=== PATIENT | male | born 1965 | race Caucasian/White ===

== ENCOUNTER 2016-09-05 15:12 | Inpatient (IN) | payer MEDICARE, OTHER ==
--- NOTE | ~2016-09-05 | CO ---
Unit #: [id number] #: [id number] Patient: ANJEL PEREZ JR [id number] [address] [place], [place] [address] [id number] I MR#: [id number] NAME: ANJEL PEREZ JR ROOM: 314 Age: 51 Sex: M Admission Date: 09/05/2016 : 1965 Attending Physician: Chiara Basurto M.D. Primary Care Physician: Sue Craig M.D. CONSULTATION REPORT CHIEF COMPLAINT Multiple myeloma stage III, 50% plasma cells in the bone marrow, addicted to the pain medication on methadone 100 mg daily. Refused stem cell transplant. Came with nausea, vomiting and possible withdrawal from methadone. HISTORY OF PRESENT ILLNESS This is a 51-year-old male who presented to this hospital with back pain found to have hypercalcemia. Patient had extensive imaging studies, all normal. His workup for multiple cell positive. His bone marrow biopsy is 50% plasma cell. His beta 2 microglobulin is 13.4, IGG Moore 8.6 was positive. Free kappa lambda ratio was less than 1. He received six cycles of CyBorD regimen. He was evaluated at [facility]. He refused stem cell transplant. The patient had followup bone marrow on 04/26/2016 and it showed minimal disease. He has an . At present, he is taking dexamethasone and Revlimid. The patient has coronary artery disease, patient recently had placement of a stent and he is taking aspirin and Plavix daily. The patient developed nausea, vomiting, abdominal pain, low-grade fever. He could not take his methadone. He developed symptoms also with the methadone withdrawal. He came to the hospital and had CT of the abdomen and pelvis that was normal. Chest x-ray normal. His CBC shows WBC of 2.3, hemoglobin 9.4, MCV 96, and platelets 60. Creatinine is 1.4. LFTs are normal. At present, he is feeling better. He is asking for methadone. REVIEW OF SYSTEMS CONSTITUTIONAL: No fever, no chills, no sweats, no weight loss. EYES: No visual symptoms. EARS, NOSE AND THROAT: There is no runny nose or sore throat or difficulty hearing. CARDIOVASCULAR: No chest pain. No shortness of breath. No palpitations. No orthopnea. No PND. Unit #: [id number] #: [id number] Patient: ANJEL PEREZ JR RESPIRATORY: No cough. No wheezing. No hemoptysis. GASTROINTESTINAL: As mentioned above, nausea, vomiting. Abdominal pain. GENITOURINARY: No urinary frequency, hesitancy or urgency. No blood in the urine. MUSCULOSKELETAL: No muscle or joint pain. NEUROLOGIC: No headache. No numbness or tingling. No weakness. No seizure. PSYCHIATRIC: No anxiety, depression or mood disturbance. ENDOCRINE: No excessive urination or thirst. DERMATOLOGIC: No rash or change in the skin. ALLERGIC/IMMUNOLOGIC: No symptoms. HEMATOLOGIC/LYMPHATIC: Denies any symptoms. PAST MEDICAL HISTORY 1. Multiple myeloma stage III. He received CyBorD regimen, 6 cycles, excellent response. Refuses stem cell transplant. Minimum disease. Now on Revlimid and dexamethasone. 2. Coronary artery disease. He had successful stent. He is taking aspirin, Plavix. 3. Hypertension. 4. Back pain. PAST SURGICAL HISTORY Hand surgery. ALLERGIES None. SOCIAL HISTORY He has been smoking one pack per day for 20 years. Denied drug abuse. However, he is on methadone because of the chronic pain. He was addicted to the pain medication. FAMILY HISTORY Father had lung cancer. Mother also had lung cancer. CURRENT MEDICATIONS Include: 1. Lipitor. 2. Zofran. 3. Methadone. 4. Zosyn. 5. Protonix. PHYSICAL EXAMINATION GENERAL: Patient is comfortable. ECOG is 0. The patient is pleasant. VITAL SIGNS: Afebrile, pulse 68, respiratory rate 18, O2 saturation 99% on 2 liters, blood pressure 104/78. HEENT: Moist mucosa. Pupils equally reactive to light. Extraocular muscles intact. Sclerae anicteric. No obvious bleeding from nasal mucosa or oral mucosa. Scalp normal. Hearing normal. NECK: No JVD. No lymphadenopathy. LYMPHATIC/HEMATOLOGIC: There is no palpable adenopathy in the neck, axilla or inguinal area. CARDIOVASCULAR: S1, S2. Regular rate and rhythm. No S3 or S4. RESPIRATORY: Chest symmetrical, normal. Clear to auscultation bilaterally. No wheezes, no rales, no rhonchi. No dullness to percussion. ABDOMEN/GASTROINTESTINAL: Abdomen is soft, nontender, nondistended. No Unit #: [id number] #: [id number] Patient: ANJEL PEREZ JR hepatosplenomegaly. EXTREMITIES: There is no clubbing, no cyanosis, no edema. No varicose veins. NEUROLOGICAL: Patient is alert, awake and oriented x3. Cranial nerves II-XII are intact. Sensory grossly intact. Motor is 4/5 in all four extremities. Gait is normal. Station is normal. Language is normal. Memory is normal. DTRs +2 in all four extremities. MUSCULOSKELETAL: No joint swelling. No bony tenderness. No muscle tenderness. SKIN: No petechiae, no rash, no ecchymosis. PSYCHIATRIC: No anxiety. No delusions or hallucinations. There is no agitation. Eye contact is normal. Affect is appropriate. There is no flight of ideas. DIAGNOSTIC STUDIES LABORATORY: As mentioned above. IMAGING: As mentioned above. ASSESSMENT AND PLAN This is a 51-year-old male with following active issues: 1. Multiple myeloma. Patient has stage III disease. 2. He has hypercalcemia. His total protein was 12. The beta 2 microglobulin 13. His free Moore/lambda ratio less than 1. He received 6 cycles of CyBorD regimen. He refused autologous stem cell transplant. He has minimal disease in the bone marrow. has 325 mg p.o. daily, 3 weeks on, 1 week off, Decadron just 10 mg p.o. aspirin 81 mg. At present will hold his Revlimid and dexamethasone. As an outpatient will restart. 3. the patient has nausea and vomiting. He received Zofran. 4. Methadone. He is probably withdrawing his methadone. I started him on 30 mg p.o. at q.8 hours. 5. Pain. He was addicted to the pain medication, now on methadone as mentioned above. 6. Anemia. Will check iron studies. 7. Thrombocytopenia. We will hold aspirin and Plavix. 8. Leukopenia. This is due to bone marrow suppression secondary to Revlimid. Will start on Granix. Dictated by... Nancy Zepeda/corey TD: 09/06/2016 18:25 JOB #: [id number] Unit #: [id number] #: [id number] Patient: ANJEL PEREZ JR CONSULTATION REPORT Page 1 of 1 X Sue Craig MD X CONSULTATION REPORT
--- NOTE | ~2016-09-05 | CR72 ---
[facility] A Service of [facility] RADIOLOGY TEXT RESULTS PATIENT: ANJEL PEREZ JR LOCATION: [facility] [id number] : [birth year] UNIT #: [id number] AGE: [address]: Joan Singh MD SEX: M ORDER DR: [id number] [facility] [address] [facility]. [place], [place] [address] [id number] E MR#: [id number] Acc #: [id number] NAME: ANJEL PEREZ JR : 1965 SEX: M STUDY DATE/TIME: 09/05/2016 16:47 UNIT: [facility] ROOM: STUDY DESCRIPTION: CR Chest Single View Portable Attending Physician: Mary Healy M.D. Ordering Physician: Mary Healy M.D. Primary Care Physician: Sue Craig M.D. MEDICAL IMAGING REPORT This report is preliminary unless electronic signature is present EXAM Portable chest, 09/05/16 INDICATIONS Fever with diaphoresis and congestion started today. History of multiple myeloma. FINDINGS AP portable chest compared with 10/10/2015. Cardiac mediastinal contours are within normal limits. There are multiple right posterior subacute to old rib fractures. The lungs are clear. No pneumothorax is seen. IMPRESSION Right posterior subacute to old rib fractures of the ribs number at least 5, 6 and 7. No clearly acute findings in the chest. Dictated by... Kunal Gillette Jr., M.D. THIS IS AN ELECTRONICALLY VERIFIED REPORT Kunal Gillette Jr., M.D. at 09/05/2016 10:22 PM ZAK/clary TD: 09/05/2016 19:46 JOB #: [id number] MEDICAL IMAGING REPORT Page 1 of 1 COPY
--- NOTE | ~2016-09-05 | HP ---
Unit #: [id number] #: [id number] Patient: ANJEL PEREZ JR [id number] [address] [place], [place] [address] [id number] MR#: [id number] NAME: ANJEL PEREZ JR ROOM: 29446 Age: 51 Sex: M Admission Date: 09/05/2016 : 1965 Attending Physician: Joan Singh M.D. Primary Care Physician: Sue Craig M.D. HISTORY AND PHYSICAL CHIEF COMPLAINT Fevers, chills, rule out sepsis. HISTORY OF PRESENT ILLNESS This pleasant 51-year-old male with CAD, COPD, opiate addiction in the methadone clinic, and multiple myeloma, is admitted for fevers and chills. The patient was diagnosed with multiple myeloma last year, currently is receiving Revlimid through Dr. Sue Craig. He was well until two days prior to admission when he developed fevers, chills, diaphoresis, generalized myalgias, shortness of breath. Today, he experienced two episodes of nausea and vomiting after he took a dose of Levaquin. States that the second episode was associated with a small amount of hematemesis but no melena or hematochezia. He has chronic diarrhea which is unchanged, denies cough, sore throat, or dysuria with the above. Does not have a port in place. He presented to this emergency department this afternoon where he looked to be quite ill. Labs and x-rays are unrevealing in terms of the source of his possible infectious symptoms, but he did have a lactic acid of 2.7. He was bolused with 2 liters of saline, given Zofran, 30 mg of Toradol, Zosyn, and Tylenol. He takes methadone b.i.d., and states that he vomited this morning's methadone. PAST MEDICAL HISTORY 1. Multiple myeloma diagnosed last year, being treated by Dr. Sue Craig. 2. Hypertension. 3. Chronic kidney disease. 4. History of lung nodules. 5. CAD with LV dysfunction, ejection fraction 40% to 45%, with moderate aortic insufficiency. The patient is status post PCI and stent of the RCA last year at [facility]. 6. COPD with ongoing tobacco use. 7. Opiate addiction, followed by the [facility]. ALLERGIES No known drug allergies. HOME MEDICATIONS 1. Pravachol 40 mg daily. 2. Plavix 75 mg daily. 3. Aspirin 81 mg daily. 4. Methadone. Patient takes 10 mg either 5 or 6 in the morning; 3 or 4 in the evening. 5. Decadron on certain weeks that he receives his chemotherapy. The Unit #: [id number] #: [id number] Patient: ANJEL PEREZ JR patient took a dose of Levaquin this morning and vomited the Levaquin. It was just started today through Dr. Craig. 6. Revlimid 25 mg for 21 days each month. SOCIAL HISTORY The patient lives with his children. He smokes one-half pack per day of tobacco. Does not drink alcohol or use illicit drugs. FAMILY HISTORY Lung cancer. REVIEW OF SYSTEMS Notable for fevers, sweats, chills, dyspnea, generalized myalgias, chronic diarrhea, multiple myeloma, hypertension, chronic kidney disease, lung nodules, COPD, tobacco abuse, CAD, opiate addiction. All other systems were reviewed and are negative. PHYSICAL EXAMINATION VITAL SIGNS: Temperature 98.4, pulse 84, respirations 18, blood pressure 143/77, O2 saturation 100% on room air. GENERAL: Pleasant, mildly ill-appearing 51-year-old male. HEENT: Eyes PERRLA. Extraocular muscles are intact. Pharynx benign. NECK: Supple without adenopathy or thyromegaly. CHEST: Clear. HEART: Normal S1, S2 with no definite murmur. ABDOMEN: Bowel sounds are present. No hepatosplenomegaly, tenderness or masses. BACK: No CVA tenderness. EXTREMITIES: Without clubbing, cyanosis, or edema. Pedal pulses are present. There may be a splinter hemorrhage over the third finger of the right hand but the patient has recently been painting and does have pain on his left hand. NEUROLOGIC: Awake, alert, oriented. Cranial nerves are intact. Equal strength throughout. DIAGNOSTIC STUDIES LABORATORY: Hematocrit 32.4, normal white count, platelet count 74. Normal coags. SMA-12 creatinine 1.5 which is stable, sodium 131, chloride 97, protein 8.6. BNP 106. Lactic acid 2.7. ABG pH 7.46, pCO2 is 35, pO2 is 74, O2 saturation 92.4% on room air. Cardiac markers are negative. Urinalysis trace protein. IMAGING: Chest x-ray chronic old right posterior fifth, sixth, seventh rib fractures. CT scan of the abdomen and pelvis no acute disease. Mild right dilation of the urinary system, possibly causing a low grade UPJ obstruction but no calculus noted. CARDIOVASCULAR: EKG sinus rhythm, rate 80, somewhat prolonged QT interval. ASSESSMENT 1. Fevers, chills, dyspnea in patient who is immunocompromised. No definite source of fever at this time. 2. Chronic diarrhea. 3. Nausea and vomiting today with a small amount of hematemesis. 4. Multiple myeloma receiving Revlimid and possibly Decadron. 5. Ischemic cardiomyopathy, ejection fraction 40% to 45%, status post Unit #: [id number] #: [id number] Patient: ANJEL PEREZ JR PCI and stent to the RCA. 6. Chronic pain and opiate addiction in the methadone clinic. The patient vomited his methadone today. 7. Chronic kidney disease. 8. Chronic obstructive pulmonary disease with ongoing tobacco use. 9. History of lung nodules. 10. Hypertension. 11. Low-grade RUPJ obstruction but no stone seen and negative urinalysis. PLAN 1. Check influenza swab. 2. Zosyn and vancomycin pending blood, stool and urine cultures. Given the patient takes methadone, and has a mildly prolonged QT interval, will hold Levaquin. 3. Will ask Dr. Craig to see in the morning and will hold chemotherapy until seen in the morning by Dr. Craig. 4. IV fluids and supportive treatment. 5. SCDs for DVT prophylaxis. 6. Further consultants depending upon above. Dictated by Joan Singh M.D. AML/cs TD: 09/05/2016 22:31 JOB #: [id number] HISTORY AND PHYSICAL Page 1 of 1 X Joan Singh MD HISTORY AND PHYSICAL
--- NOTE | ~2016-09-05 | CT4 ---
[facility] A Service of [facility] RADIOLOGY TEXT RESULTS PATIENT: ANJEL PEREZ JR LOCATION: [facility] 314-01 : [birth year] UNIT #: [id number] AGE: [address]: Joan Singh MD SEX: M ORDER DR: [id number] [facility] [address] [facility]. [place], [place] [address] [id number] E MR#: [id number] Acc #: [id number] NAME: ANJEL PEREZ JR : 1965 SEX: M STUDY DATE/TIME: 09/05/2016 18:27 UNIT: [facility] ROOM: STUDY DESCRIPTION: CT Abd and Pelv Wo Cont Attending Physician: Mary Healy M.D. Ordering Physician: Mary Healy M.D. Primary Care Physician: Sue Craig M.D. MEDICAL IMAGING REPORT This report is preliminary unless electronic signature is present EXAM CT of abdomen and pelvis without contrast. HISTORY Diffuse abdomen pain for 2 days. Epigastric pain. TECHNIQUE This CT exam was performed with one or more of the following radiation dose reduction techniques: automatic exposure control, adjustment of mA and/or kV according to patient size, and iterative reconstruction. FINDINGS CT abdomen and pelvis was performed without contrast. CT ABDOMEN. The liver, gallbladder, spleen, pancreas, left kidney, and adrenal glands are normal. Mild right pyelocaliectasis, slightly greater than on CT 10/06/2015, but no ureteral dilatation. Findings could be due to a low grade UPJ obstruction. No ascites. No adenopathy. Normal caliber abdominal aorta. CT PELVIS. Normal appendix. Urinary bladder is normal. Surgical clips in the right groin. No inflammatory stranding. No bowel dilatation. Mild chronic compression fractures of the superior plates of T12, L1 and L2, are unchanged. IMPRESSION 1. No acute findings. 2. No bowel obstruction or free fluid or inflammatory stranding. [facility] A Service of [facility] RADIOLOGY TEXT RESULTS PATIENT: ANJEL PEREZ JR LOCATION: [facility] 314-01 : [birth year] UNIT #: [id number] AGE: [address]: Joan Singh MD SEX: M ORDER DR: 3. Mild right pyelocaliectasis but no ureteral dilatation. This is slightly greater than on CT 10/06/2015, and could be secondary to a low grade UPJ obstruction. No urinary calculi. 4. Normal appendix. Dictated by... Wilver Grimm M.D. THIS IS AN ELECTRONICALLY VERIFIED REPORT Wilver Grimm M.D. at 09/05/2016 10:47 PM JOSE MANUEL/abbey TD: 09/05/2016 21:15 JOB #: [id number] MEDICAL IMAGING REPORT Page 1 of 1 COPY
--- NOTE | ~2016-09-05 | EKG ---
PATIENT: ANJEL PEREZ UNIT #: [id number] Ventricular Rate: 80 BPM Atrial Rate: 80 BPM P-R Interval: 154 ms QRS Duration: 88 ms Q-T Interval: 426 ms QTC Calculation(Bezet): 491 ms P [place]: 64 degrees Calculated R [place]: 24 degrees Calculated T [place]: 26 degrees Diagnosis Line: Normal sinus rhythm Diagnosis Line: Prolonged QT Diagnosis Line: Abnormal ECG Diagnosis Line: Diagnosis Line: Confirmed by MIRTA BUTLER MD ([id number]) on 09/05/2016 Diagnosis Line: 6:11:08 PM INTERPRETING MD: CARRIE VARGAS
--- NOTE | ~2016-09-05 | DS ---
Unit #: [id number] #: [id number] Patient: ANJEL PEREZ JR [id number] [address] [address] [id number] I MR#: [id number] NAME: ANJEL PEREZ JR ROOM: [facility] Age: 51 Sex: M Admission Date: 09/05/2016 : 1965 Discharge Date: 09/07/2016 Attending Physician: Chiara Basurto M.D. Primary Care Physician: Sue Craig M.D. DISCHARGE SUMMARY FINAL DIAGNOSES 1. Fever and chills, probably viral. 2. Immunocompromised status. 3. Pancytopenia. SECONDARY DIAGNOSIS 1. Multiple myeloma. 2. Chronic kidney disease stage 3. 3. Chronic systolic heart failure. CONSULTANTS Dr. Craig. HOSPITAL COURSE The patient is a 51-year-old male who presented with fever and chills. He does have immunosuppression, as he has multiple myeloma. Woke up really was negative. He was started on broad spectrum antibiotics. His white count on presentation was as low as 2.3. He did get Granix from oncology/hematology and his white count today on the day of discharge is up to 8.4. Hemoglobin and hematocrit is 8.8 and 26.5. He had a chest x-ray, which showed older fractures with no acute findings in the chest. Urinalysis was essentially negative. It was thought that he may have had a viral illness. The plan is to discharge him home with outpatient short course of antibiotics, Augmentin 875 mg p.o. b.i.d. for seven more days. FOLLOWUP 1. He is scheduled to followup with PCP in the next three to five days. 2. Hematology/oncology in the next one to two weeks. DISCHARGE STATUS Stable. Time spent coordinating discharge as above, 27 minutes. Dictated by... Nancy Gilbert TD: 09/07/2016 11:25 JOB #: [id number] Unit #: [id number] #: [id number] Patient: ANJEL PEREZ JR DISCHARGE SUMMARY Page 1 of 1 X John Monteiro MD SUMMARY
[~2016-09-05 15:12] MED LIST: ACETAMINOPHEN PO; ASPIRIN EC81 M1 PO; ASPIRIN81 MG PO; AUGMENTIN PO; BACTRIM DS TABL1 TA1 PO; CIPRO HC OTIC S10 ML OT; CLOPIDOGREL75 MG PO; DIAZEPAM PO; DICLOFENAC PO; IBUPROFEN800 MG PO; K-DUR20 ME2 PO; LORTAB 2.5/5001 TAB PO; METHADONE PO; METOPROLOL TAR25 MG PO; NO MEDICATIONS; NORVASC10 MG PO; PAXIL PO; PEN-VEE K PO; PHENERGAN25 MG PO; PRAVASTATIN SOD40 MG PO; VICODIN PO; [UNRECOGNIZED DRUG - REMARK]
[2016-09-05 16:18] LABS: ARTERIAL BLD GAS O2 SATURATION 92.4 % (90.0-100.0); ARTERIAL BLOOD GAS CARBOXY HB 4.3 %sat (0.0-9.0); ARTERIAL BLOOD GAS HCO3 25.6 mmol/L; ARTERIAL BLOOD GAS MET HB 0.4 %sat (0.0-2.0); ARTERIAL BLOOD GAS PCO2 35.7 mmHg (35.0-45.0); ARTERIAL BLOOD GAS PO2 74.4 mmHg (80.0-100); ARTERIAL BLOOD GAS pH 7.464 (7.350-7.450)
[2016-09-05 16:19] LABS: ARTERIAL BLOOD GAS ALLEN TEST NORMAL; ARTERIAL BLOOD GAS ART SITE LEFT RADIAL; ARTERIAL DRAW? YES
[2016-09-05 16:23] LABS: POC - CKMB 1.7 ng/mL (0.0-7.9); POC - TROPONIN <0.05 ng/mL (<=0.05)
[2016-09-05 16:29] LABS: BASOPHIL# 0.1 X10e3 (0-0.3); BASOPHIL% 1.2 % (0-2.5); EOSINOPHIL# 0.5 X10e3 (0-0.7); EOSINOPHIL% 11.1 % (0.0-7.0); HEMATOCRIT 32.4 % (38.0-50.0); HEMOGLOBIN 10.7 gm/dL (13.0-16.0); LYMPHOCYTE# 1.4 X10e3 (1.0-3.5); LYMPHOCYTE% 32.7 % (17.0-45.0); MEAN CELL VOLUME 95.8 FL (83-96); MEAN CORPUSCULAR HEMOGLOBIN 31.5 PG (28-34); MEAN CORPUSCULAR HGB CONC 32.9 g/dL (30-36); MEAN PLATELET VOLUME 10.3 FL (6.5-11.5); MONOCYTE# 0.3 X10e3 (0-1.0); MONOCYTE% 6.7 % (3.0-12.0); NEUTROPHIL# 2.1 X10e3 (1.5-7.1); NEUTROPHIL% 48.3 % (40-75); RED BLOOD COUNT 3.39 X10e (3.90-5.60); RED CELL DISTRIBUTION WIDTH 18.1 % (11.0-15.5); WHITE BLOOD COUNT 4.3 X10e3 (4.0-10.5)
[2016-09-05 16:36] LABS: ALBUMIN SERUM 3.6 g/dL (3.5-5.0); BILIRUBIN, DIRECT 0.1 mg/dL (0.0-0.2); BILIRUBIN,INDIRECT 0.3 mg/dL (0.0-0.9); BILIRUBIN,TOTAL 0.4 mg/dL (0.2-2.0); BUN/CREATININE RATIO 7.33; CALCIUM SERUM 9.4 mg/dL (8.4-10.2); CREATININE SERUM 1.5 mg/dL (0.6-1.4); GLOM FILT RATE Estimated 53.9 mL/min (>60); INR 1.1; PARTIAL THROMBOPLASTIN TIME 22.6 SECONDS (23.5-31.3); POTASSIUM 3.7 mmol/L (3.5-5.1); PROTEIN TOTAL SERUM 8.6 g/dL (6.0-8.3); PROTHROMBIN TIME (PATIENT) 11.4 SECONDS (9.6-11.5)
[2016-09-05 16:48] LABS: PLATELET COUNT 74 X10e3 (140-420)
[2016-09-05 16:49] LABS: DIFF IND NO
[2016-09-05] MEDS ORDERED: ZOLOFT50 MG PO (17:08)
[2016-09-05] MEDS ORDERED: METHADOSE10 MG PO (17:09)
[2016-09-05] MEDS ORDERED: DEXAMETHASONE2 MG (17:10)
[2016-09-05] MEDS ORDERED: LEVAQUIN750 M1 PO (17:10)
[2016-09-05] MEDS ORDERED: REVLIMID25 MG PO (17:19)
[2016-09-05 17:44] LABS: URINE SOURCE CLEAN CATCH
[2016-09-05 17:50] LABS: URINE APPEARANCE CLEAR; URINE BILIRUBIN NEG (NEG); URINE BLOOD 1+ (NEG); URINE COLOR YELLOW; URINE GLUCOSE NEG (NEG); URINE KETONE NEG (NEG); URINE LEUKOCYTE ESTERASE NEG (NEG); URINE NITRATE NEG (NEG); URINE PROTEIN TRACE (NEG); URINE SPECIFIC GRAVITY 1.003 (1.003-1.035); URINE UROBILINOGEN 0.2 MG/DL (NEG)
[2016-09-05 17:51] LABS: URINE BACTERIA AUWI NEG (NEGATIVE); URINE SQUAMOUS EPITHELIAL CELL NONE SEEN /[HPF]; UWBCS1 AUWI 0-2 (0-5)
[2016-09-05 17:56] LABS: CULTURE INDICATED? NO
[2016-09-05 18:01] LABS: POC - CKMB <1.0 ng/mL (0.0-7.9); POC - TROPONIN <0.05 ng/mL (<=0.05)
[2016-09-05 21:45] LABS: INFLUENZA A NEG (NEG); INFLUENZA B NEG (NEG)
[2016-09-06 05:57] LABS: HEMATOCRIT 29.3 % (38.0-50.0); HEMOGLOBIN 9.4 gm/dL (13.0-16.0); MEAN CELL VOLUME 98.6 FL (83-96); MEAN CORPUSCULAR HEMOGLOBIN 31.8 PG (28-34); MEAN CORPUSCULAR HGB CONC 32.2 g/dL (30-36); MEAN PLATELET VOLUME 9.8 FL (6.5-11.5); RED BLOOD COUNT 2.97 X10e (3.90-5.60); RED CELL DISTRIBUTION WIDTH 18.3 % (11.0-15.5); WHITE BLOOD COUNT 2.3 X10e3 (4.0-10.5)
[2016-09-06 06:23] LABS: BILIRUBIN,TOTAL 0.6 mg/dL (0.2-2.0); BUN/CREATININE RATIO 7.14; CALCIUM SERUM 8.3 mg/dL (8.4-10.2); CREATININE SERUM 1.4 mg/dL (0.6-1.4); GLOM FILT RATE Estimated 58.6 mL/min (>60); POTASSIUM 4.1 mmol/L (3.5-5.1); PROTEIN TOTAL SERUM 7.2 g/dL (6.0-8.3)
[2016-09-07 05:17] LABS: HEMATOCRIT 26.5 % (38.0-50.0); HEMOGLOBIN 8.8 gm/dL (13.0-16.0); MEAN CELL VOLUME 97.3 FL (83-96); MEAN CORPUSCULAR HEMOGLOBIN 32.1 PG (28-34); MEAN PLATELET VOLUME 10.6 FL (6.5-11.5); RED BLOOD COUNT 2.73 X10e (3.90-5.60); RED CELL DISTRIBUTION WIDTH 18.4 % (11.0-15.5); WHITE BLOOD COUNT 8.4 X10e3 (4.0-10.5)
[2016-09-07 06:02] LABS: ALBUMIN SERUM 3.1 g/dL (3.5-5.0); BILIRUBIN,TOTAL 0.4 mg/dL (0.2-2.0); CALCIUM SERUM 8.5 mg/dL (8.4-10.2); CREATININE SERUM 1.2 mg/dL (0.6-1.4); GLOM FILT RATE Estimated 70.6 mL/min (>60); POTASSIUM 3.5 mmol/L (3.5-5.1); PROTEIN TOTAL SERUM 6.5 g/dL (6.0-8.3)
[2016-09-07 06:08] LABS: FERRITIN 156 ng/mL (24-336)
[2016-09-07 06:28] LABS: IRON SERUM 95 ug/dL (45-182); TOTAL IRON BINDING CAPACITY 246 ug/dL (252-460); TRANSFERRIN 176 mg/dL (180-329); TRANSFERRIN SATURATION 39 % (20-50)
[2016-09-07] MEDS ORDERED: ACETAMINOPHEN650 M1 PO (10:47)
[2016-09-07] MEDS ORDERED: ZOLOFT50 MG PO (10:48)
[2016-09-07] MEDS ORDERED: DECADRON PO (10:50)
[2016-09-07] MEDS ORDERED: AUGMENTIN PO (10:51)
[2016-09-07] MEDS ORDERED: PAIN & FEVER325 MG PO (10:58)
== END 2016-09-07 14:58 | disposition home or self-care (01) | DRG 866 ==
LOC: CED 15:12 → CEDOF 21:24 → C3A PCU 21:24 → CEDOF 21:30 → C3A PCU 22:33 → CEDOF 22:33 → C3A PCU 22:33
PROVIDERS: Emergency Medicine; Internal Medicine; Internal Medicine Hematology; Internal Medicine Pulmonary Disease
DX: B34.9 Viral infection, unspecified (principal); D84.9 Immunodeficiency, unspecified; D61.818 Other pancytopenia; C90.00 Multiple myeloma not having achieved remission; N18.3 Chronic kidney disease, stage 3 (moderate); I13.0 Hypertensive heart and chronic kidney disease with heart failure and stage 1 through stage 4 chronic kidney disease, or unspecified chronic kidney disease; I50.22 Chronic systolic (congestive) heart failure; F11.20 Opioid dependence, uncomplicated; K92.0 Hematemesis; E44.1 Mild protein-calorie malnutrition; I25.10 Atherosclerotic heart disease of native coronary artery without angina pectoris; J44.9 Chronic obstructive pulmonary disease, unspecified; K52.9 Noninfective gastroenteritis and colitis, unspecified; Z79.82 Long term (current) use of aspirin; I25.5 Ischemic cardiomyopathy; G89.29 Other chronic pain; Z68.23 Body mass index [BMI] 23.0-23.9, adult
CPT/HCPCS: 36415; 36600; 71010; 74176; 80048; 80053; 80076; 81003; 82308; 82550; 82553; 82607; 82728; 82803; 83540; 83550; 83605; 83880; 84484; 85025; 85027; 85610; 85730; 86850; 86900; 86901; 87040; 87804; 93005; 96361; 96374; 99285; J1100; J1447; J1885; J2270; J2405; J2543; J3370

== ENCOUNTER 2016-09-10 14:22 | Emergency (ER) | payer MEDICARE, OTHER ==
[~2016-09-10 14:22] MED LIST changes: +ACETAMINOPHEN650 M1 PO; +DECADRON PO; +DEXAMETHASONE2 MG; +LEVAQUIN750 M1 PO; +METHADOSE10 MG PO; +PAIN & FEVER325 MG PO; +REVLIMID25 MG PO; +ZOLOFT50 MG PO
[2016-09-10 15:35] LABS: ALBUMIN SERUM 3.4 g/dL (3.5-5.0); BILIRUBIN, DIRECT 0.1 mg/dL (0.0-0.2); BILIRUBIN,INDIRECT 0.4 mg/dL (0.0-0.9); BILIRUBIN,TOTAL 0.5 mg/dL (0.2-2.0); BUN/CREATININE RATIO 10.83; CALCIUM SERUM 9.5 mg/dL (8.4-10.2); CREATININE SERUM 1.2 mg/dL (0.6-1.4); GLOM FILT RATE Estimated 70.6 mL/min (>60); POTASSIUM 3.2 mmol/L (3.5-5.1); PROTEIN TOTAL SERUM 8.1 g/dL (6.0-8.3)
[2016-09-10 15:46] LABS: URINE SOURCE CLEAN CATCH
[2016-09-10 15:51] LABS: URINE APPEARANCE CLOUDY; URINE BILIRUBIN NEG (NEG); URINE BLOOD 1+ (NEG); URINE COLOR YELLOW; URINE GLUCOSE 100 MG/DL (NEG); URINE KETONE NEG (NEG); URINE LEUKOCYTE ESTERASE NEG (NEG); URINE NITRATE NEG (NEG); URINE PROTEIN 3+ (NEG); URINE SPECIFIC GRAVITY 1.018 (1.003-1.035); URINE UROBILINOGEN 0.2 MG/DL (NEG)
[2016-09-10 15:51] LABS: BASOPHIL% 0.9 % (0-2.5); EOSINOPHIL# 0.1 X10e3 (0-0.7); EOSINOPHIL% 1.6 % (0.0-7.0); HEMATOCRIT 31.8 % (38.0-50.0); HEMOGLOBIN 10.5 gm/dL (13.0-16.0); LYMPHOCYTE# 1.5 X10e3 (1.0-3.5); LYMPHOCYTE% 34.4 % (17.0-45.0); MEAN CELL VOLUME 96.3 FL (83-96); MEAN CORPUSCULAR HEMOGLOBIN 31.8 PG (28-34); MEAN PLATELET VOLUME 9.9 FL (6.5-11.5); MONOCYTE# 0.4 X10e3 (0-1.0); MONOCYTE% 10.1 % (3.0-12.0); NEUTROPHIL# 2.3 X10e3 (1.5-7.1); RED CELL DISTRIBUTION WIDTH 18.5 % (11.0-15.5); WHITE BLOOD COUNT 4.4 X10e3 (4.0-10.5)
[2016-09-10 15:53] LABS: URINE BACTERIA AUWI NEG (NEGATIVE); URINE SQUAMOUS EPITHELIAL CELL OCC /[HPF]; UWBCS1 AUWI 0-2 (0-5)
[2016-09-10 15:55] LABS: CULTURE INDICATED? NO
[2016-09-10 16:06] LABS: DIFF IND NO; PLATELET COUNT 96 X10e3 (140-420)
== END 2016-09-10 19:53 | disposition home or self-care (01) ==
LOC: CED 14:22
DX: R51 Headache (principal); R19.7 Diarrhea, unspecified; R11.2 Nausea with vomiting, unspecified; F17.200 Nicotine dependence, unspecified, uncomplicated; Z79.899 Other long term (current) drug therapy
CPT/HCPCS: 36415; 80048; 80076; 81003; 83690; 85025; 96361; 96374; 96375; 99284; J0780; J1200; J2405